=== PATIENT | female | born 1970 | race Caucasian/White ===

== ENCOUNTER 2019-02-12 09:05 | Emergency (ER) | payer OTHER ==
[2019-02-12 09:11] VITALS: BP 131/72; PULSE 69; TEMP 98.2; BMI 23.3
--- NOTE | 2019-02-12 09:12 | PDOC ---
Attending Attestation - Resident Resident Name: Dianne Mane - ED Attending Attestation I have performed the following: I have examined & evaluated the patient, The case was reviewed & discussed with the resident, I agree w/resident's findings & plan, Exceptions are as noted - HPI HPI: 02/12/19 09:16 Chief complaint: Head injury HPI: Fell downstairs last night while intoxicated. Observed by her , no loss of consciousness. This morning he has a headache, bruise on the right side of her scalp, nausea. Review of systems: No visual or focal neurologic symptoms, or unsteadiness of gait. No chest pain, shortness of breath, abdominal pain, diarrhea, vaginal bleeding or discharge, urinary tract symptoms, pain or injury to the neck, chest , abdomen, spine, pelvis, or extremities Past medical history: Alcohol abuse. Social/family history as above otherwise negative Physical exam: Alert and oriented no acute distress cooperative. Vital signs stable No pallor or icterus Head: Mild tenderness right occiput with small hematoma of the scalp. No crepitus or depression. PERRLA, fundi benign. ENT clear Neck without tenderness or deformity, full range of motion without pain Chest clear. No chest wall or rib cage tenderness or deformity CV regular without murmur rub or gallop Abdomen benign Neurological C2 to 12 intact. Strength full and symmetric. No focal sensorimotor deficits. Gait stable and unimpaired. - Physicial Exam PE: 02/12/19 09:20 PE as described above. - Medical Decision Making 02/12/19 09:20 Assessment: Head injury, appears minor. Symptoms today may be the result of heavy alcohol consumption last night Plan: Symptomatic treatment, imaging studies as recommended by Dr. Mane. 02/12/19 11:20 CT of the head and neck no significant abnormalities. Patient is enrolled in AA and will discuss her episode of alcohol abuse with her counselor. She appears serious and committed. Discharged fully ambulatory in no distress to follow-up as directed
--- NOTE | 2019-02-12 09:17 | PDOC ---
History of Present Illness - General Chief Complaint: Injury Stated Complaint: HEAD INJURY Time Seen by Provider: 02/12/19 09:09 - History of Present Illness Initial Comments: 02/12/19 09:10 48 yo F PMH alcohol use, 1ppd smoker for 13 years, p/w R occipital head pain. Reports that she was drinking a bottle of wine yesterday evening, first drink in 3 months, intoxicated, slipped and fell backwards on hardwood floor, hit the R back side of her head. No LOC, confirmed by who was there the whole time. This morning, having nausea without vomiting and dizziness like "room is spinning", worsened by lying down. Denies CP, SOB, fevers/chills, confusion. Endorses HERNANDEZ. Patient reports that she has been in menopause for the past 4 years. Past History - Past Medical History Allergies/Adverse Reactions: Allergies Allergy/AdvReac Type Severity Reaction Status Date / Time Penicillins Allergy Verified 02/12/19 09:06 Home Medications: Ambulatory Orders Aripiprazole [Abilify] mg PO DAILY 02/12/19 Metformin HCl [Glucophage] mg PO DAILY 02/12/19 Oxcarbazepine [Trileptal] mg PO HS 02/12/19 Review of Systems - Review of Systems Able to Perform ROS?: Yes Constitutional: No: Chills, Diaphoresis, Fever, Weakness HEENTM: No: Recent change in vision, Double Vision, Tinnitus, Hearing Loss, Difficulty Swallowing Respiratory: No: Cough, Orthopnea, Shortness of Breath Cardiac (ROS): No: Chest Pain, Edema, Irregular Heart Rate, Lightheadedness, Palpitations, Syncope, Chest Tightness ABD/GI: Yes: Nausea. No: Constipated, Diarrhea, Vomiting : No: Flank Pain Musculoskeletal: No: Back Pain, Muscle Pain, Neck Pain Neurological: Yes: Headache, Dizziness ("room spinning"). No: Numbness, Tingling, Weakness, Ataxia *Physical Exam - Physical Exam Comments: 02/12/19 09:20 Gen: well-developed, well-nourished, NAD Neuro: AAOX4, CN II-XII intact, FTN intact, EOMI, PERRLA, 5/5 strength, SILT HEENT: normocephalic, dry mucous membranes, mild swelling and ttp at R occiput, minor abrasions without laceration Neck: trachea midline, supple CV: regular rate, regular rhythm, no murmurs, rubs, or gallops Pulm: CTA b/l, no wheezing Abd: soft, non-distended, non-tender MSK: full ROM, intact pulses Extr: no edema, no deformities Skin: warm, dry Medical Decision Making - Medical Decision Making 02/12/19 09:21 No LOC. Patient with nausea and dizziness, also distracting injury, cannot entirely rule out C-spine or cranial injury. - urine - CT head non con - CT spine non con - ctm 02/12/19 10:54 CT head: No evidence of a focal intracranial lesion or hemorrhage seen. Mild to moderate soft tissue swelling of the scalp over the right posterior high convexity. CT cervical spine: The alignment is satisfactory. No gross fracture or subluxation is seen. Moderate to marked degenerative disc disease from C4 to T1 level with mild posterior spur formation as well as mild bilateral uncovertebral hypertrophy slightly narrowing the left foramen at C5-C6 level. Correlate clinically for further evaluation. Discharge - Discharge Information Problems reviewed: Yes Clinical Impression/Diagnosis: Fall Condition: Stable - Follow up/Referral - Patient Discharge Instructions - Post Discharge Activity
[2019-02-12] MEDS ORDERED: ACETAMINOPHEN 500 MG TABLET (FP) PO ONE (10:57)
== END 2019-02-12 11:25 | disposition home or self-care (01) ==
LOC: FER 09:05
DX: S09.90XA Unspecified injury of head, initial encounter (principal); F10.10 Alcohol abuse, uncomplicated; F17.210 Nicotine dependence, cigarettes, uncomplicated; Z88.0 Allergy status to penicillin; W10.9XXA Fall (on) (from) unspecified stairs and steps, initial encounter; Y93.89 Activity, other specified; Y92.9 Unspecified place or not applicable
CPT/HCPCS: 70450-TC; 72125-TC; 84703; 99283-25

== ENCOUNTER 2022-09-20 01:25 | Emergency (ER) | payer OTHER ==
[2022-09-20 01:37] VITALS: BP 122/90; PULSE 88; RESP 18; TEMP 98; BMI 22.3
[2022-09-20] MEDS ORDERED: ALBUTEROL SO4 2.5/IPRATROPIUM 0.5 INH SOL 3 ML VIAL.NEB. NEB ONE ×2 (01:39→01:41)
[2022-09-20] MEDS ORDERED: predniSONE 20 MG TABLET (UD) PO ONE (02:05)
[2022-09-20] MEDS ORDERED: predniSONE 20 MG TABLET (UD) ONE (02:09)
== END 2022-09-20 02:12 | disposition home or self-care (01) ==
LOC: FER 01:25
PROC: 3E0F7GC Introduction of Other Therapeutic Substance into Respiratory Tract, Via Natural or Artificial Opening (ICD-10-PCS; principal; 2022-09-20)
DX: R05.9 Cough, unspecified (principal); J40 Bronchitis, not specified as acute or chronic
CPT/HCPCS: 94640; 99283-25

== ENCOUNTER 2024-09-23 00:36 | Emergency (ER) | payer OTHER ==
[2024-09-23 00:46] VITALS: BP 124/73; PULSE 88; RESP 16; TEMP 98.2; BMI 22.3
[2024-09-23] MEDS ORDERED: ALBUTEROL SO4 2.5/IPRATROPIUM 0.5 INH SOL 3 ML VIAL.NEB. NEB ONE (01:21)
[2024-09-23] MEDS: ALBUTEROL SO4 2.5/IPRATROPIUM 0.5 INH SOL 3 ML VIAL.NEB. NEB ONE (01:23)
[2024-09-23] MEDS ORDERED: CEFUROXIME AXETIL 500 MG TABLET ONE (01:41)
[2024-09-23] MEDS ORDERED: predniSONE 20 MG TABLET (UD) ONE (02:14)
[2024-09-23] MEDS: predniSONE 20 MG TABLET (UD) PO ONE (02:16)
== END 2024-09-23 02:19 | disposition home or self-care (01) ==
LOC: FER 00:36
PROC: 3E0F7GC Introduction of Other Therapeutic Substance into Respiratory Tract, Via Natural or Artificial Opening (ICD-10-PCS; principal; 2024-09-23)
DX: J20.9 Acute bronchitis, unspecified (principal); R05.9 Cough, unspecified; R06.02 Shortness of breath
CPT/HCPCS: 99283-25